=== PATIENT | male | born 1950 | race Caucasian/White ===

== ENCOUNTER 2017-03-13 09:34 | Emergency (ER) | payer OTHER ==
--- NOTE | 2017-03-13 09:46 | CPEKG ---
Heart Rate: 97 RR Interval: 619 P-R Interval: 168 QRSD Interval: 90 QT Interval: 368 QTC Interval: 468 P [place]: 63 QRS [place]: -37 T Wave [place]: -16 EKG Severity - ABNORMAL ECG - EKG Impression: SINUS RHYTHM Electronically Signed By: Matty House 13-Mar-2017 11:13:57
[2017-03-13] MEDS ORDERED: NITROGLYCERIN 0.4 MG BTL SL ONE (09:56)
[2017-03-13] MEDS ORDERED: ASPIRIN 81 MG CHEWABLE TAB PO ONE (09:56)
--- NOTE | 2017-03-13 10:09 | EDPHY ---
H & P Smoking Status: Former smoker Time Seen by Provider: 03/13/17 09:55 HPI/ROS: CHIEF COMPLAINT: Chest pain HISTORY OF PRESENT ILLNESS: 67-year-old male presents to the emergency department by private vehicle complaining of chest pain. Patient has a history of coronary artery disease with 2 stents placed February 2013. Patient states 2 or 3 days ago he noted some pain in the left side of his neck which was radiating down to his left shoulder and left scapular area. He thought this was related to work since he does heavy lifting at work. He states early yesterday morning he was having pain in his chest providing him from sleeping any took nitroglycerin tablet with relief. He states he slept well but then had recurring pain in his chest. Continued ongoing pain in his chest since that time. He denies feeling short of breath currently, however he did report that when he went up a flight of stairs he was feeling a bit more winded. Denies a headache. Denies abdominal pain or vomiting. REVIEW OF SYSTEMS: Constitutional: No fever, no chills. Eyes: No double or blurry vision. ENT: No sore throat. Respiratory: No cough, no shortness of breath. Cardiac: chest pain. Gastrointestinal: No abdominal pain, vomiting or diarrhea. Genitourinary: No dysuria. Musculoskeletal: No neck or back pain. Skin: No rashes. Neurological: No headache. (Adriana Nugent) Past Medical/Surgical History: Coronary artery disease, myocardial infarction with stents February 2013, hyperlipidemia, appendectomy, orthopedic surgery, hepatitis (Adriana Nugent) Social History: and lives alone in [place] (Adriana Nugent) Physical Exam: General Appearance: Alert, no distress. Blood pressure 138/90, heart rate 90, 97% on room air. Currently in no apparent distress. Eyes: Pupils equal and round. Extraocular motions are all intact. ENT: Mouth: Mucous membranes moist. Respiratory: No wheezing, rhonchi, or rales, lungs are clear to auscultation. Cardiovascular: Regular rate and rhythm. Unable to reproduce pain with palpation to the anterior aspect of his chest. No palpable crepitus or other bony abnormality. Gastrointestinal: Abdomen is soft and nontender, no masses, no rebound or guarding, bowel sounds normal. Neurological: Alert and oriented x 3, cranial nerves II through XII grossly intact Skin: Warm and dry, no rashes. Musculoskeletal: Nontender to palpate along the cervical, thoracic or lumbar spine. Neck is supple. Extremities: Full range of motion and no peripheral edema. Psychiatric: Patient is oriented X 3, there is no agitation. (Adriana Nugent) Constitutional: Initial Vital Signs Temperature (C) 36.8 C 03/13/17 09:37 Heart Rate 90 03/13/17 09:37 Respiratory Rate 16 03/13/17 09:37 Blood Pressure 138/90 H 03/13/17 09:37 O2 Sat (%) 97 03/13/17 09:37 O2 Delivery Mode Room Air Allergies/Adverse Reactions: No Known Allergies Allergy (Unverified 03/13/17 09:37) Home Medications: Medication Instructions Recorded Multivitamins [Multivitamin (*)] 1 each PO DAILY 02/22/13 Nitroglycerin [Nitrostat 0.4 mg 0.4 mg SL PRN PRN 02/22/13 (*)] Tetrahydrozoline 0.05% [Visine (*)] 1 drop EACHEYE DAILY PRN 02/22/13 Aspirin EC [Aspirin EC 81 mg (*)] 81 mg PO BID 01/16/14 Atorvastatin Calcium [Lipitor 80 80 mg PO DAILY@1800 01/16/14 mg] Metoprolol Tartrate [Lopressor 25 12.5 mg PO BID #30 tab 01/18/14 mg (*)] Medical Decision Making - Diagnostics Imaging: I viewed and interpreted images myself - Diagnostics EKG Interpretation: EKG: Complete interpretation has been separately recorded in the [employer] archive. Summary impression: Sinus, rate 97, nonspecific ST T wave changes noted (Matty House) Imaging Results: Imaging Impressions Chest X-Ray 03/13/17 10:05 Impression: No active cardiopulmonary disease seen. ED Course/Re-evaluation: The patient was given 4 baby aspirin in the emergency department. He also received nitroglycerin sublingual in the emergency department with relief of pain. Laboratory studies reveal normal CBC and normal chemistries. Troponin is negative. Chest x-ray is unremarkable. EKG was reviewed by Dr. House. See interpretation in trace master. (Adriana Nugent) Differential Diagnosis: Chest pain including but not limited to myocardial ischemia, pulmonary embolus, chest wall pain, pleural inflammation and pulmonary infectious causes. (Adriana Nugent) Other Provider: Independent physician evaluation: I evaluated and participated in the management of the patient. I also evaluated the patient independently. My co-signature indicates that I have reviewed this chart and I agree with the findings and plan of care as documented. My personal H&P findings include: The patient presents to the ED for evaluation of mild chest pain he has experienced intermittently over the past several days. He does have a history of coronary artery disease and a history of stenting. The patient denies any history of exertional chest pain. He has used nitroglycerin twice over the past 2 days. The patient is currently chest pain-free. Physical exam: General Appearance: Alert, no distress Eyes: Pupils equal and round no pallor or injection ENT, Mouth: Mucous membranes moist Respiratory: There are no retractions, lungs are clear to auscultation Cardiovascular: Regular rate and rhythm Gastrointestinal: Abdomen is soft and nontender, no masses, bowel sounds normal Neurological: A&O, normal motor function, normal sensory exam, normal cranial nerves Skin: Warm and dry, no rashes Musculoskeletal: Neck is supple nontender Extremities: symmetrical, full range of motion Psychiatric: Patient is oriented X 3, there is no agitation ED course: The patient has had a several day history of left shoulder pain attributed to a musculoskeletal source of pain. The patient does have coronary artery disease and had use nitroglycerin for very mild left-sided chest discomfort over the past day. I told the patient given his history of heart disease I recommend admission to the hospital for observation however he declines. He does understand that we have not excluded unstable angina. He would like to follow up with his regular blocker polishing tomorrow. He understands to return to the ED for any severe worsening chest pain. The patient is a competent decision maker and I have informed him that he is at high risk for myocardial infarction within the next day. The patient accepts this risk and is discharged home per his request.. (Matty House) - Data Points Laboratory Results: Laboratory Results 03/13/17 09:40 03/13/17 09:40 03/13/17 03/13/17 09:40 09:40 WBC 8.69 10^3/uL 10^3/uL (3.80-9.50) RBC 4.96 10^6/uL 10^6/uL (4.40-6.38) Hgb 17.1 g/dL g/dL (13.7-17.5) Hct 48.7 % % (40.0-51.0) MCV 98.2 fL fL (81.5-99.8) MCH 34.5 pg H pg (27.9-34.1) MCHC 35.1 g/dL g/dL (32.4-36.7) RDW 13.2 % % (11.5-15.2) Plt Count 277 10^3/uL 10^3/uL (150-400) MPV 9.4 fL fL (8.7-11.7) Neut % (Auto) 56.2 % % (39.3-74.2) Lymph % (Auto) 32.6 % % (15.0-45.0) [place] % (Auto) 9.9 % % (4.5-13.0) Eos % (Auto) 0.5 % L % (0.6-7.6) Baso % (Auto) 0.6 % % (0.3-1.7) Nucleat RBC Rel Count 0.0 % % (0.0-0.2) Absolute Neuts (auto) 4.89 10^3/uL 10^3/uL (1.70-6.50) Absolute Lymphs (auto) 2.83 10^3/uL 10^3/uL (1.00-3.00) Absolute Monos (auto) 0.86 10^3/uL H 10^3/uL (0.30-0.80) Absolute Eos (auto) 0.04 10^3/uL 10^3/uL (0.03-0.40) Absolute Basos (auto) 0.05 10^3/uL 10^3/uL (0.02-0.10) Absolute Nucleated RBC 0.00 10^3/uL 10^3/uL (0-0.01) Immature Gran % 0.2 % % (0.0-1.1) Immature Gran # 0.02 10^3/uL 10^3/uL (0.00-0.10) Sodium 140 mEq/L mEq/L (135-145) Potassium 3.9 mEq/L mEq/L (3.5-5.2) Chloride 101 mEq/L mEq/L (97-110) Carbon Dioxide 25 mEq/l mEq/l (22-31) Anion Gap 14 mEq/L mEq/L (8-16) BUN 19 mg/dL mg/dL (7-23) Creatinine 1.0 mg/dL mg/dL (0.7-1.3) Estimated GFR > 60 Glucose 188 mg/dL H mg/dL (70-100) Calcium 9.6 mg/dL mg/dL (8.5-10.4) Troponin I < 0.012 ng/mL ng/mL (0.000-0.034) Medications Given: Discontinued Medications Aspirin (Aspirin) 324 mg PO EDNOW ONE Stop: 03/13/17 09:57 Last Admin: 03/13/17 09:59 Dose: 324 mg Nitroglycerin (Nitrostat) 0.4 mg SL EDNOW ONE Stop: 03/13/17 09:57 Last Admin: 03/13/17 10:00 Dose: 0.4 mg Departure - Departure Disposition: Home, Routine, Self-Care Clinical Impression: Chest pain Qualifiers: Chest pain type: unspecified Qualified Code(s): R07.9 - Chest pain, unspecified Condition: Good Instructions: Chest Pain (ED) Additional Instructions: 1. Based upon the testing done in the Emergency Department today we see no evidence of a heart attack. We have recommended admission to the hospital which you have declined. It is imperative that you contact her blocker polishing immediately tomorrow to schedule a follow-up visit. 2. We are unable to fully exclude coronary artery disease based upon the testing available in the Emergency Department. 3. Please return to the Emergency Department immediately for any recurrent chest pain, worsening symptoms, should you reconsider your decision not to be hospitalized for observation or for difficulty breathing or other concerns. Referrals: Javier Lawrence MD [Medical Doctor] - As per Instructions
[2017-03-13 10:11] LABS: PLATELET COUNT 277 10^3/uL (150-400)
[2017-03-13 11:18] VITALS: BP 120/79; PULSE 72; TEMP 98.6; O2SAT 93
[2017-03-13 11:29] VITALS: RESP 18
== END 2017-03-13 11:27 | disposition home or self-care (01) ==
DX: R07.9 Chest pain, unspecified (principal); I25.10 Atherosclerotic heart disease of native coronary artery without angina pectoris; I25.2 Old myocardial infarction; Z79.82 Long term (current) use of aspirin; Z87.891 Personal history of nicotine dependence